=== PATIENT | female | born 1980 | race Asian ===

== ENCOUNTER 2016-10-18 06:39 | Inpatient (IN) | payer OTHER ==
[~2016-10-18] VITALS: Ht 172.7 cm; Wt 88.0 kg
[2016-10-18] VITALS (8 sets, daily range): BP systolic 97–132; BP diastolic 47–75
[2016-10-18] MEDS ORDERED: PRENTAB9 PO (07:07)
[2016-10-18] MEDS ORDERED: ZOLO100T PO (07:07)
[2016-10-18] MEDS ORDERED: LR 1,000 ML IV SCH ×2 (07:35→10:45)
[2016-10-18] MEDS ORDERED: AZITHROMYCIN INJ 500 MG, VIAL MATE ADAPTER 1 EACH in D5W 250 ML IV ONE (07:45)
[2016-10-18 08:27] LABS: MEAN CORPUSCULAR HEMOGLOBIN 31.3 pg (27.0-33.0); MEAN CORPUSCULAR HGB CONC 34.2 g/dl (32.0-36.5); MEAN CORPUSCULAR VOLUME 91.4 fl (80.0-96.0); RED CELL DISTRIBUTION WIDTH 13.5 % (11.5-14.5); WHITE BLOOD COUNT 18.1 K/mm3 (4.0-10.0)
[2016-10-18] MEDS ORDERED: BICITRA 30ML SOLN UDC As Ordered ONE (08:46)
[2016-10-18] MEDS ORDERED: OXYTOCIN INJ 10 UNITS/ML VIAL (J2590) As Ordered ONE (08:58)
[2016-10-18] MEDS ORDERED: ONDANSETRON 4MG/2ML VIAL (J2405) As Ordered ONE (09:00)
[2016-10-18] MEDS ORDERED: BICITRA 30ML SOLN UDC PO ONE (09:00)
[2016-10-18] MEDS ORDERED: KETOROLAC 60 MG/2 ML VIAL (J1885) As Ordered ONE (09:00)
[2016-10-18] MEDS ORDERED: MORPHINE PRES-FREE INJ 10 MG/10 ML VIAL (J2274) As Ordered ONE (09:01)
[2016-10-18] MEDS ORDERED: MIDAZOLAM INJ 2 MG/2 ML VIAL (J2250) As Ordered ONE (09:44)
[2016-10-18] MEDS ORDERED: MEPERIDINE INJ 25 MG/ML VIAL (J2175) IV PRN (10:45)
[2016-10-18] MEDS ORDERED: ONDANSETRON 4MG/2ML VIAL (J2405) IV PRN ×2 (10:45→11:15)
[2016-10-18] MEDS ORDERED: KETOROLAC 30 MG/ML VIAL (J1885) IV PRN (10:45)
[2016-10-18] MEDS ORDERED: METOCLOPRAMIDE INJ 10MG/2ML VIAL (J2765) IV PRN (10:45)
[2016-10-18] MEDS ORDERED: fentaNYL 100 MCG/2 ML INJECTION (J3010) IV PRN (10:45)
[2016-10-18] MEDS ORDERED: PERCOCET 5MG/325MG TAB PO PRN ×3 (10:45→11:15)
[2016-10-18] MEDS ORDERED: fentaNYL 100 MCG/2 ML INJECTION (J3010) As Ordered ONE (11:14)
[2016-10-18] MEDS ORDERED: PROMETHAZINE 25 MG TAB PO PRN (11:15)
[2016-10-18] MEDS ORDERED: RHOGAM 300 MCG (1500 IU) INJ (J2790) IM SCH (11:15)
[2016-10-18] MEDS ORDERED: METHYLERGONOVINE MALEATE 0.2 MG/ML VIAL (J2210) IM PRN (11:15)
[2016-10-18] MEDS ORDERED: MEASLES,MUMPS,RUBELLA VACCINE INJ (MMR-II) (90707) SC SCH (11:15)
[2016-10-18] MEDS: DOCUSATE SODIUM 100 MG CAP PO SCH ×2 (12:05→20:42)
[2016-10-18] MEDS: PRENATAL VITAMINS CHEWABLE TABLET PO SCH (12:05)
[2016-10-18] MEDS: LR 1,000 ML IV SCH ×2 (13:15→23:30)
[2016-10-18] MEDS: KETOROLAC 30 MG/ML VIAL (J1885) IV SCH ×2 (15:09→20:42)
[2016-10-18] MEDS: SERTRALINE 100 MG TAB PO SCH (18:55)
[2016-10-19 02:10] VITALS: BP 122/58
[2016-10-19] MEDS: KETOROLAC 30 MG/ML VIAL (J1885) IV SCH ×2 (03:02→08:49)
[2016-10-19 06:22] VITALS: BP 117/57
[2016-10-19 06:33] LABS: MEAN CORPUSCULAR HEMOGLOBIN 31.2 pg (27.0-33.0); MEAN CORPUSCULAR VOLUME 91.6 fl (80.0-96.0); RED CELL DISTRIBUTION WIDTH 13.2 % (11.5-14.5); WHITE BLOOD COUNT 15.7 K/mm3 (4.0-10.0)
[2016-10-19] MEDS: LR 1,000 ML IV SCH (06:51)
[2016-10-19] MEDS: SERTRALINE 100 MG TAB PO SCH (08:47)
[2016-10-19] MEDS: PRENATAL VITAMINS CHEWABLE TABLET PO SCH (08:47)
[2016-10-19] MEDS: DOCUSATE SODIUM 100 MG CAP PO SCH ×2 (08:48→22:29)
[2016-10-19] MEDS ORDERED: ADACEL/BOOSTRIX VACCINE (DIPHTH/PERTUSS/ACELL/TETANUS)0.5ML SYR (90715) IM ONE (09:00)
[2016-10-19 10:48] VITALS: BP 95/48
[2016-10-19 14:01] VITALS: BP 112/55
[2016-10-19] MEDS: IBUPROFEN 800 MG TAB PO SCH (16:52)
[2016-10-19 18:07] VITALS: BP 108/54
[2016-10-20] MEDS: IBUPROFEN 800 MG TAB PO SCH ×2 (00:28→08:47)
--- NOTE | 2016-10-20 05:30 | IPNPDOC ---
Text Note Date of Service The patient was seen on 10/20/16. NOTE POD2 s/p RLTCS S: Pt doing well. Pain well controlled, lochia minimal, voiding, tolerating a regular diet, ambulating without difficulty. No f/c/n/v/arrieta/cp/lp/sob. Bottle feeding. O: normotensive, nml HR, afebrile H: RRR no m/g/r L: CTA b/l no w/c/r/r Abd: soft, appropriately tender, and FH at U-2, inc C/D/I Ext: no c/c/e CBC POD1 appropriate A/P: S/p RLTCS, POD2. Hemodynamically stable, afebrile, good pain control. D/ C home Sessions VS,Karen, I+O VSKaren I+O Laboratory Tests 10/19/16 06:19 Red Blood Count 3.49 L, Mean Corpuscular Volume 91.6, Mean Corpuscular Hemoglobin 31.2, Mean Corpuscular Hemoglobin Concent 34.0, Red Cell Distribution Width 13.2 Vital Signs Date Time Temp Pulse Resp B/P (MAP) Pulse Ox O2 Delivery O2 Flow Rate FiO2 10/19/16 18:07 98.1 72 20 108/54 (72) 10/19/16 14:01 98 I&O- Last 24 Hours up to 6 AM 10/20/16 05:59 Output Total 600 ml Balance -600 ml SESSIONS,ANGEL Kramer MD Oct 20, 2016 05:30
--- NOTE | 2016-10-20 05:34 | DS.PDOC ---
Discharge Summary General Date of Admission Oct 18, 2016 at 07:33 Date of Discharge [id number] Discharge Summary PROCEDURES PERFORMED DURING STAY: [facility] ADMITTING DIAGNOSIS: 1. Labor/PROM at ~37 weeks 2. Prior Cesareans X2 DISCHARGE DIAGNOSES: 1. Healthy male infant 2. Bottle feeding HOSPITAL COURSE: Admitted for active labor and delivery. Uncomplicated , see operative note. DISCHARGE MEDICATIONS: Motrin, Percocet, Colace, Lanolin Physical exam: see note from this morning LABORATORY DATA: Please see below. ACTIVITY: As tolerated. Nothing in vagina for 6 weeks. NO bathing for 4 weeks. No driving for 2 weeks. DIET: regular DISPOSITION:stable TIME SPENT ON DISCHARGE: Greater than 15 minutes. Sessions Vital Signs/I&Os Vital Signs Date Time Temp Pulse Resp B/P (MAP) Pulse Ox O2 Delivery O2 Flow Rate FiO2 10/19/16 18:07 98.1 72 20 108/54 (72) 10/19/16 14:01 98 I&O- Last 24 Hours up to 6 AM 10/20/16 06:00 Output Total 600 ml Balance -600 ml Laboratory Data CBC/BMP Laboratory Tests 10/19/16 06:19 Red Blood Count 3.49 L, Mean Corpuscular Volume 91.6, Mean Corpuscular Hemoglobin 31.2, Mean Corpuscular Hemoglobin Concent 34.0, Red Cell Distribution Width 13.2 Discharge Medications Scheduled Multivitamins/ ( 27-0.8 mg) 1 Tab Tab, 1 TAB PO DAILY, (Reported ) Sertraline Hcl (Zoloft) 100 Mg Tab, 100 MG PO DAILY, (Reported) Allergies Coded Allergies: No Known Allergies (Unverified , 10/18/16) SESSIONSANGEL MD Oct 20, 2016 05:34
[2016-10-20 06:24] VITALS: BP 138/79
[2016-10-20] MEDS: DOCUSATE SODIUM 100 MG CAP PO SCH (08:45)
[2016-10-20] MEDS: SERTRALINE 100 MG TAB PO SCH (08:46)
[2016-10-20] MEDS: PRENATAL VITAMINS CHEWABLE TABLET PO SCH (08:46)
[2016-10-20] MEDS ORDERED: COLA100C5 PO (09:52)
[2016-10-20] MEDS ORDERED: OXYC1TAB23 PO (09:52)
[2016-10-20] MEDS ORDERED: IBUP-1114 PO (09:52)
== END 2016-10-20 12:23 | disposition home or self-care (01) | DRG 766 ==
LOC: M LDO 06:39 → M LDI 07:33 → M OBS 12:11
PROVIDERS: ADMIT Student in an Organized Health Care Education/Training Program; ATTEND Student in an Organized Health Care Education/Training Program
PROC: 10D00Z1 Extraction of Products of Conception, Low, Open Approach (ICD-10-PCS; principal; 2016-10-18 09:37)
DX: O42.02 Full-term premature rupture of membranes, onset of labor within 24 hours of rupture (principal); Z37.0 Single live birth; O34.211 Maternal care for low transverse scar from previous cesarean delivery; Z3A.37 37 weeks gestation of pregnancy

== ENCOUNTER → 2017-09-09 | Outpatient (REF) | payer OTHER | LOC: M SFHCLERA 12:38 | DX: N30.01 Acute cystitis with hematuria (principal) | CPT/HCPCS: 87186 ==